=== PATIENT | female | born 1975 | race Two or more races ===

== ENCOUNTER 2017-08-09 08:12 | Emergency (ER) | payer MEDICAID ==
[~2017-08-09] VITALS: Ht 162.6 cm; Wt 72.6 kg
[2017-08-09 08:20] VITALS: BP 134/82
[2017-08-09] MEDS ORDERED: MORPHINE SULFATE 4 MG/ML SYR/VIAL IM ONE (10:45)
[2017-08-09] MEDS ORDERED: HYDROcodone-ACET 10/325MG TAB PO ONE (10:45)
== END 2017-08-09 11:14 | disposition home or self-care (01) ==
LOC: ER 08:12
DX: M46.46 Discitis, unspecified, lumbar region (principal); G89.29 Other chronic pain; M54.5 Low back pain; F17.210 Nicotine dependence, cigarettes, uncomplicated

== ENCOUNTER 2023-07-10 23:07 | Emergency (ER) | payer MEDICAID ==
[~2023-07-10] VITALS: Ht 162.6 cm; Wt 69.8 kg
[2023-07-11 00:07] LABS: Basophils # (auto) 0 10 ^3/uL (0-0.2); Basophils % (auto) 0.8 % (0.0-2.0); Eosinophils # (auto) 0 10 ^3/uL (0-0.8); Eosinophils % (auto) 0.3 % (0.0-7.0); Hematocrit 27.7 % (36.0-46.0); Hemoglobin 8.3 g/dL (12.2-16.2); Lymphocytes % (auto) 22.5 % (10.0-50.0); Mean Corpuscular Hgb Conc. 29.9 g/dL (32.0-36.0); Mean Corpuscular Volume 63.7 fL (80.0-100.0); Monocytes # (auto) 0.4 10 ^3/uL (0-1.3); Neutrophils # (auto) 3.1 10 ^3/uL (1.6-8.6); Neutrophils % (auto) 67.4 % (37.0-80.0); Red Blood Cells 4.35 10^6/uL (4.0-5.20); Red Cell Distribution Width 18.7 % (11.8-14.3); White Blood Cell 4.5 10^3/uL (4.4-10.8)
[2023-07-11 00:21] LABS: Alanine Aminotransferase 10 U/L (7-40); Albumin 4.2 g/dL (3.2-4.8); Alkaline Phosphatase 61 U/L (46-116); Anion Gap 6 (5-15); Aspartate Aminotransferase 20 U/L (13-40); BUN/Creatinine Ratio 11.8 (10.0-20.0); Blood Urea Nitrogen 10 mg/dL (9-23); Calcium 8.8 mg/dL (8.5-10.1); Carbon Dioxide 29 mmol/L (20-30); Chloride 101 mmol/L (98-107); Glucose 120 mg/dL (74-106); Potassium 3.8 mmol/L (3.5-5.1); Sodium 136 mmol/L (136-145)
[2023-07-11 00:22] LABS: Bilirubin, Total 0.2 mg/dL (0.2-1.0); Total Protein 6.8 g/dL (5.7-8.2)
[2023-07-11 00:34] LABS: Hypochromia Moderate; Ovalocytes FEW; Platelet Estimate Adequate
[2023-07-11 00:45] LABS: Urine Bacteria FEW /hpf (None Seen); Urine Blood 2+ /uL (Negative); Urine Clarity Clear (Clear); Urine Color Yellow (Yellow); Urine Mucus FEW (None Seen); Urine Protein, UAD Negative (Negative); Urine Specific Gravity 1.011 (1.001-1.035); Urine Urobilinogen Normal (Negative); Urine WBC 13 /hpf (0 - 5)
[2023-07-11 00:52] LABS: Lipase 37 U/L (12-53)
[2023-07-11] MEDS ORDERED: FER325T PO (02:25)
[2023-07-11] MEDS ORDERED: IBUP-1455 PO (02:25)
[2023-07-11] MEDS ORDERED: DOCU-94 PO (02:25)
[2023-07-11] MEDS ORDERED: NITR-87 PO (02:25)
[2023-07-11] MEDS ORDERED: NITROFURANTOIN 100 mg CAP PO ONE (02:30)
[2023-07-11] MEDS ORDERED: ACETAMINOPHEN/CODEINE#3 (300/30mg) TAB PO ONE (02:30)
[2023-07-11] MEDS ORDERED: cefTRIAXone SOD 1,000 MG VL IM ONE (02:30)
[2023-07-11 06:56] VITALS: BP 117/64; PULSE 68; RESP 20; TEMP 97.8; O2SAT 100
== END 2023-07-11 07:15 | disposition home or self-care (01) ==
LOC: ER 23:07
DX: D25.9 Leiomyoma of uterus, unspecified (principal); R10.2 Pelvic and perineal pain; N39.0 Urinary tract infection, site not specified; D64.9 Anemia, unspecified; F17.210 Nicotine dependence, cigarettes, uncomplicated; F12.10 Cannabis abuse, uncomplicated; F15.10 Other stimulant abuse, uncomplicated; Z88.6 Allergy status to analgesic agent
CPT/HCPCS: 36415; 74176; 76830; 76856; 80053; 81001; 83605; 83690; 84702; 85025; 86850; 86900; 86901; 96372; 99285; J0696

== ENCOUNTER 2023-08-09 09:46 | Emergency (ER) | payer MEDICAID ==
[~2023-08-09] VITALS: Ht 162.6 cm; Wt 73.0 kg
[~2023-08-09 09:46] MED LIST: DOCU-94 PO; FER325T PO; IBUP-1455 PO; NITR-87 PO
[2023-08-09 10:10] VITALS: BP 123/68; PULSE 79; RESP 15; TEMP 97.9; O2SAT 100
[2023-08-09] MEDS ORDERED: IBUP1TAB5 PO (10:22)
[2023-08-09] MEDS ORDERED: CEPH500C PO (10:22)
== END 2023-08-09 10:53 | disposition home or self-care (01) ==
LOC: ER 09:46
DX: H61.21 Impacted cerumen, right ear (principal); L02.821 Furuncle of head [any part, except face]; F17.210 Nicotine dependence, cigarettes, uncomplicated; F12.10 Cannabis abuse, uncomplicated; F15.10 Other stimulant abuse, uncomplicated

== ENCOUNTER 2023-09-12 05:33 | Emergency (ER) | payer MEDICAID ==
[~2023-09-12] VITALS: Ht 162.6 cm; Wt 73.7 kg
[~2023-09-12 05:33] MED LIST changes: +CEPH500C PO; +IBUP1TAB5 PO
[2023-09-12 07:21] VITALS: BP 125/84; PULSE 89; RESP 16; TEMP 99.1; O2SAT 95
[2023-09-12 07:31] LABS: Urine Bacteria NONE SEEN /hpf (None Seen); Urine Blood 2+ /uL (Negative); Urine Clarity Clear (Clear); Urine Color Yellow (Yellow); Urine Mucus FEW (None Seen); Urine Protein, UAD Negative (Negative); Urine Specific Gravity 1.025 (1.001-1.035); Urine WBC 1 /hpf (0 - 5); Urine pH 7.5 (5.0-8.0)
[2023-09-12] MEDS ORDERED: BACDST PO (07:35)
[2023-09-12] MEDS ORDERED: PHEN-922 PO (07:35)
== END 2023-09-12 07:39 | disposition home or self-care (01) ==
LOC: ER 05:33
DX: R30.0 Dysuria (principal); R30.9 Painful micturition, unspecified; R39.15 Urgency of urination; R10.30 Lower abdominal pain, unspecified; F17.210 Nicotine dependence, cigarettes, uncomplicated; Z79.1 Long term (current) use of non-steroidal anti-inflammatories (NSAID); Z79.899 Other long term (current) drug therapy
CPT/HCPCS: 81001

== ENCOUNTER 2024-01-30 03:05 | Emergency (ER) | payer MEDICAID ==
[~2024-01-30] VITALS: Ht 162.6 cm; Wt 71.9 kg
[~2024-01-30 03:05] MED LIST changes: +BACDST PO; +PHEN-922 PO
[2024-01-30 03:29] VITALS: BP 116/81; PULSE 91; RESP 16; TEMP 98.3; O2SAT 98
[2024-01-30 03:38] LABS: Urine Bacteria FEW /hpf (None Seen); Urine Blood 3+ /uL (Negative); Urine Color Light-Orange (Yellow); Urine Mucus FEW (None Seen); Urine Protein, UAD 1+ (Negative); Urine Urobilinogen 2 mg/dL (Negative); Urine WBC 8 /hpf (0 - 5)
[2024-01-30 03:39] LABS: Urine Clarity Cloudy (Clear)
[2024-01-30] MEDS ORDERED: NITR-52 PO (04:06)
== END 2024-01-30 04:11 | disposition home or self-care (01) ==
LOC: ER 03:05
DX: N39.0 Urinary tract infection, site not specified (principal); F17.210 Nicotine dependence, cigarettes, uncomplicated; F12.10 Cannabis abuse, uncomplicated; F15.10 Other stimulant abuse, uncomplicated
CPT/HCPCS: 81001

== ENCOUNTER 2024-03-15 21:00 | Emergency (ER) | payer MEDICAID ==
[~2024-03-15] VITALS: Ht 162.6 cm; Wt 70.0 kg
[~2024-03-15 21:00] MED LIST changes: +NITR-52 PO
[2024-03-15] MEDS ORDERED: CLOT-6 EX (22:00)
[2024-03-15 22:10] VITALS: BP 122/76; TEMP 98.3
[2024-03-15 22:11] VITALS: PULSE 81; RESP 18; O2SAT 99
== END 2024-03-15 22:02 | disposition home or self-care (01) ==
LOC: ER 21:00
DX: B37.2 Candidiasis of skin and nail (principal); F17.210 Nicotine dependence, cigarettes, uncomplicated; Z79.1 Long term (current) use of non-steroidal anti-inflammatories (NSAID); Z79.899 Other long term (current) drug therapy; Z98.890 Other specified postprocedural states